=== PATIENT | male | born 1995 | race Caucasian/White ===

== ENCOUNTER 2022-06-04 18:51 | Emergency (ER) | payer OTHER ==
[~2022-06-04] VITALS: Ht 180.3 cm; Wt 79.4 kg
[2022-06-04 19:05] VITALS: BP 131/78
--- NOTE | 2022-06-04 19:05 | NUR ---
26 y/o male bib family, pt states for 2 months he has been having constipation, stool was tested and came back positive for parasites 5 days ago. pt now c/o of vomiting after flagyl dose on empty stomach. states medication makes him dizzy and nauseous, pt has been taking for 4 days at this time. pmh: denies cody
[2022-06-04 19:20] VITALS: BP 131/78
[2022-06-04] MEDS ORDERED: ONDANSETRON 4 MG ODT PO ONE (19:40)
--- NOTE | 2022-06-04 19:45 | NUR ---
pt asking for the medication for nausea
--- NOTE | 2022-06-04 20:00 | NUR ---
father at the bedside
[2022-06-04] MEDS ORDERED: ONDA-188 SL (20:11)
--- NOTE | 2022-06-04 20:15 | NUR ---
po cahhlanged was perfomed with water and pt is tolerated well, denies nausea.
--- NOTE | 2022-06-04 20:45 | NUR ---
Patient discharged with v/s stable. Written and verbal after care instructions given and explained. Patient alert, oriented and verbalized understanding of instructions. Ambulatory with steady gait. All questions addressed prior to discharge. ID band removed. Patient advised to follow up with PMD. Rx of zofran given. Patient educated on indication of medication including possible reaction and side effects. Opportunity to ask questions provided and answered. pt left with her belonigings.
== END 2022-06-04 20:45 | disposition home or self-care (01) ==
LOC: MED 18:51
DX: R11.2 Nausea with vomiting, unspecified (principal); T37.3X5A Adverse effect of other antiprotozoal drugs, initial encounter; Z79.899 Other long term (current) drug therapy; Y92.89 Other specified places as the place of occurrence of the external cause
CPT/HCPCS: 99283; Q0162; J7030

== ENCOUNTER 2022-07-13 09:30 | Emergency (ER) | payer OTHER ==
[~2022-07-13] VITALS: Ht 180.3 cm; Wt 81.6 kg
[~2022-07-13 09:30] MED LIST: ONDA-188 SL
[2022-07-13 09:45] VITALS: BP 124/75
[2022-07-13] MEDS ORDERED: BENZ-300 PO (12:11)
--- NOTE | 2022-07-13 15:44 | NUR ---
Patient discharged with v/s stable. Written and verbal after care instructions given and explained. Patient alert, oriented and verbalized understanding of instructions. Ambulatory with to home. All questions addressed prior to discharge. ID band removed. Patient advised to follow up with PMD. Rx of CEPACOL given. Patient educated on indication of medication including possible reaction and side effects. Opportunity to ask questions provided and answered.
== END 2022-07-13 14:30 | disposition home or self-care (01) ==
LOC: MED 09:30
DX: J02.9 Acute pharyngitis, unspecified (principal); Z20.822 Contact with and (suspected) exposure to COVID-19; Z79.899 Other long term (current) drug therapy
CPT/HCPCS: 87081; 99283